=== PATIENT | male | born 1985 | race Hispanic/Latino ===

== ENCOUNTER 2017-08-27 23:14 | Emergency (ER) | payer SELFPAY ==
[2017-08-27] MEDS ORDERED: Lidocaine 1% w/Epinephrine 1:100K 20 ML VIAL ONE (23:30)
== END 2017-08-28 00:56 | disposition home or self-care (01) ==
LOC: ERS 23:14
DX: S01.312A Laceration without foreign body of left ear, initial encounter (principal); Y04.8XXA Assault by other bodily force, initial encounter
CPT/HCPCS: 12013; J2001

== ENCOUNTER 2017-09-04 12:23 | Emergency (ER) | payer SELFPAY | END 2017-09-04 13:07 | disposition home or self-care (01) | LOC: ERS 12:23 | DX: S01.312D Laceration without foreign body of left ear, subsequent encounter (principal); F17.200 Nicotine dependence, unspecified, uncomplicated ==